=== PATIENT | female | born 1985 | race Caucasian/White ===

== ENCOUNTER 2019-01-22 20:45 | Emergency (ER) | payer MEDICAID ==
[~2019-01-22] VITALS: Ht 160 cm; Wt 59.9 kg
[2019-01-22 20:53] VITALS: Ht 160 cm; Wt 59.9 kg
[2019-01-22 21:41] LABS: BASOPHIL % 1.4 % (0-2); PLATELET COUNT 348 x10^3mcL (130-400)
[2019-01-22 21:43] LABS: microscopic required? YES; urine erythrocyte 1+ (NEGATIVE)
[2019-01-22 21:45] LABS: RED CELL DISTRIBUTION WIDTH 22.4 % (11.5-14.5)
[2019-01-23 00:13] VITALS: BP 89/66
== END 2019-01-23 00:13 | disposition home or self-care (01) ==
LOC: ED 20:45
PROVIDERS: Emergency Medicine
DX: O20.9 Hemorrhage in early pregnancy, unspecified (principal); O36.4XX0 Maternal care for intrauterine death, not applicable or unspecified; Z3A.12 12 weeks gestation of pregnancy
CPT/HCPCS: 36415